=== PATIENT | male | born 1950 | race Caucasian/White ===

== ENCOUNTER → 2019-06-13 15:54 | Outpatient (CLI) | payer MEDICARE, OTHER, SELFPAY ==
[2019-06-13 15:03] VITALS: BMI 28.3
[2019-06-13 17:30] LABS: Microalbumin:Creatinine Ratio 6.5 mg/g CRE (<30 mg/g CRE)
[2019-06-13 18:17] LABS: ALB/GLOB Ratio 1.3 RATIO (0.9-2.4); AST(SGOT) 21 U/L (15-37); Alanine Aminotransfer ALT/SGPT 25 U/L (16-61); Albumin, Serum 3.8 g/dL (3.2-5.0); Alkaline Phosphatase 66 U/L (45-117); Anion Gap 9 (5-15); BUN 27 mg/dL (7-18); BUN/Creat Ratio 24.8 RATIO (10-20); Chloride 105 mmol/L (98-107); Cholesterol 191 mg/dL (200); Creatinine, Serum 1.09 mg/dL (0.70-1.30); EST Glomerular Filtration Rate 72 mL/min (>60); Est Glom Filt Rate - Afr Amer 87 mL/min (>60); Globulin 2.9 g/dL (2.2-4.2); Glucose 118 mg/dL (74-106); High Density Lipoprotein 38 mg/dL; Potassium 4.2 mmol/L (3.5-5.1); Protein, Total 6.7 g/dL (6.4-8.2); Sodium Level 139 mmol/L (136-145); Triglycerides 680 mg/dL
== END ==
PROVIDERS: Referring Provider Internal Medicine Endocrinology, Diabetes & Metabolism; Visit Provider Internal Medicine Endocrinology, Diabetes & Metabolism
DX: E78.2 Mixed hyperlipidemia (principal); E78.70 Disorder of bile acid and cholesterol metabolism, unspecified; E11.65 Type 2 diabetes mellitus with hyperglycemia
CPT/HCPCS: 36415; 80053; 80061; 82043; 82570; 84443